=== PATIENT | male | born 1980 | race African-American/Black ===

== ENCOUNTER 2023-06-25 16:41 | Emergency (ER) | payer SELFPAY ==
[~2023-06-25] VITALS: Ht 185.4 cm; Wt 102.0 kg
[2023-06-25 16:46] VITALS: BP 134/88; PULSE 76; RESP 16; TEMP 98.8; O2SAT 100
== END 2023-06-25 17:41 | disposition home or self-care (01) ==
LOC: ER 16:41
DX: H92.01 Otalgia, right ear (principal); R09.A0 Foreign body sensation, unspecified; F12.90 Cannabis use, unspecified, uncomplicated
CPT/HCPCS: 99281